=== PATIENT | female | born 1970 | race Caucasian/White ===

== ENCOUNTER → 2022-07-23 10:36 | Outpatient (CLI) | payer MEDICAID, SELFPAY ==
[2022-07-23 14:14] LABS: Alanine Aminotransferase 36 U/L (12-78); Albumin Level 4.7 g/dl (3.5-5.0); Albumin/Globulin Ratio 1.4 (1.1-1.8); Alkaline Phosphatase 87 U/L (38-126); Anion Gap 13.5 mEq/L (5-15); Aspartate Amino Transferase 47 U/L (14-36); Bilirubin,Total 1.5 mg/dl (0.2-1.3); Blood Urea Nitrogen 14 mg/dl (7-17); Calcium 9.5 mg/dl (8.4-10.2); Carbon Dioxide 28 mmol/L (22.0-30.0); Chloride 100 mmol/L (98-107); Chol/HDL Ratio 3.6 (1-3.5); Cholesterol 215 mg/dl (140-200); Estimated Glomerular Filt Rate 88 ml/min (>60); GFR (African American) 107 ML/MIN (>60); Globulin 3.4 g/dL (1.3-3.2); Glucose 95 mg/dl (74-100); HDL Cholesterol 60 mg/dl (40-60); Potassium 4.5 mmoL/L (3.5-5.1); Sodium 137 mmol/L (136-145); Total Protein,Serum 8.1 g/dl (6.3-8.2); Triglycerides 104 mg/dl (30-150); VLDL Cholesterol 21 mg/dL (0-40)
[2022-07-23 14:23] LABS: Basophils # 0.1 K/mm3 (0-0.2); Basophils % 0.5 % (0.1-2.0); Eosinophils # 0.3 K/mm3 (0.0-0.4); Eosinophils % 2.9 % (0.1-12.0); Hematocrit 42.2 % (37.0-47.0); Hemoglobin 13.9 g/dL (12.2-16.2); Lymphocytes # 3.4 K/mm3 (0.7-4.5); Lymphocytes % 34.2 % (10-50); Mean Corpuscular HGB Conc 32.9 g/dL (31.8-35.4); Mean Corpuscular Hemoglobin 30.8 pg (27.0-31.2); Mean Corpuscular Volume 93.8 fl (81-99); Mean Platelet Volume 9.8 fl (7.4-10.4); Monocytes # 0.5 K/mm3 (0.1-1.0); Monocytes % 5.2 % (1.7-9.3); Neutrophils # 5.7 K/mm3 (1.8-7.8); Neutrophils % 57.3 % (37.0-80.0); Platelet Count 292 K/mm3 (142-424); Red Cell Distribution Width 13.4 % (11.5-17.5); White Blood Count 9.9 K/mm3 (4.8-10.8)
[2022-07-23 14:25] LABS: Direct LDL Cholesterol 123.41 mg/dL (100-129)
[2022-07-23 14:31] LABS: Free T4 (Free Thyroxine) 1.46 ng/dl (0.78-2.19)
[2022-07-23 14:33] LABS: 25-OH Vitamin D, Total 26.6 ng/mL (30-100)
[2022-07-23 14:45] LABS: Thyroid Stimulating Hormone 6.66 uIU/mL (0.465-4.68)
== END ==
PROVIDERS: PCP Emergency Medicine; Visit Provider Emergency Medicine
DX: R53.83 Other fatigue (principal); E55.9 Vitamin D deficiency, unspecified
CPT/HCPCS: 80053; 80061; 82306; 84439; 84443; 85025

== ENCOUNTER 2022-08-16 10:30 | Outpatient (RCR) | payer MEDICAID, SELFPAY ==
--- NOTE | 2022-08-05 09:19 | HMH.PTOPEV ---
PT Outpatient Evaluation Rehab PT Outpatient Evaluation Start: 08/05/22 08:11 Freq: Status: Active Protocol: Document 08/05/22 08:50 GINNY (Rec: 08/05/22 09:19 PHOTAYE [id number]) E-signed By Alvarado Velazquez, PT Outpatient Therapy Subjective History Subjective History This is the initial PT eval for Kirsten May 51 yowf who presents with c/o 2-3 mos hx of increased neck pain and 20 yr hx of chronic low back pain with radicular symptoms. She reports she recently changed jobs and her work requires an increased amount of reaching and pulling which she thinks has increased her neck pain. She also has hx of ~3 lumbar spine surgeries (unsure of exact surgery, but appears to be PLIF) due to DDD and unknown disc pathology. She reports she continues to suffer intermittent B LE radicular symptoms to the foot distally. She also has hx of colon resection and LAY. Pt appears somwehat anxious at baseline during examination. Chief Complaint Pain,Stiff,Paresthesia Symptom Type Ache,Burning,Numbness,Tingling Symptoms Relieved By Rest/Positioning Symptoms Aggravated By Standing,Bending/Stooping, Physical Activity,Lifting Prior Functional Limitations Lifting Current Functional Limitations Reaching,Lifting,Housework, Recreation Activity,Bending/ Stooping Symptom Description Constant but Variable Level of pain today (0-10) 6 Pain scale - at its worst (0-10) 10 Cervical Eval Palpation Cervical Muscles R Upper Trapezius Cervical/Thoracic Palpation Findings Tenderness,Spasm Posture Head/C-Spine Posture Sitting Position Extended Head/C-Spine Posture Standing Position Extended Flexibility Deficits Upper Trapezius Muscle Length (R) Mild Tightness Levaetor Scapulae Muscle Length (R) Mild Tightness Passive Joint Mobility Cervical PIVM Dec: R C4/5 L C4/5 R C5/6 L C5/6 R C6/7 L C6/7 WNL: R
== END 2022-08-16 10:35 | disposition home or self-care (01) ==
LOC: PT 10:30
PROVIDERS: PCP Emergency Medicine; Visit Provider Emergency Medicine
DX: M54.2 Cervicalgia (principal); M54.50 Low back pain, unspecified
CPT/HCPCS: 97010; 97014; 97110; 97163; G0283

== ENCOUNTER → 2022-10-15 14:43 | Outpatient (CLI) | payer BC, SELFPAY | PROVIDERS: PCP Emergency Medicine; Visit Provider Emergency Medicine | DX: N39.0 Urinary tract infection, site not specified (principal); B96.20 Unspecified Escherichia coli [E. coli] as the cause of diseases classified elsewhere | CPT/HCPCS: 87086; 87088; 87186 ==

== ENCOUNTER → 2023-01-13 13:48 | Outpatient (CLI) | payer BC, SELFPAY ==
[2023-01-13 14:37] LABS: Basophils # 0.1 K/mm3 (0-0.2); Basophils % 0.8 % (0.1-2.0); Eosinophils # 0.2 K/mm3 (0.0-0.4); Eosinophils % 3.1 % (0.1-12.0); Hematocrit 45.3 % (37.0-47.0); Hemoglobin 14.5 g/dL (12.2-16.2); Lymphocytes # 2.6 K/mm3 (0.7-4.5); Lymphocytes % 38.3 % (10-50); Mean Corpuscular HGB Conc 32.1 g/dL (31.8-35.4); Mean Corpuscular Hemoglobin 30.2 pg (27.0-31.2); Mean Corpuscular Volume 94.2 fl (81-99); Mean Platelet Volume 8.6 fl (7.4-10.4); Monocytes # 0.3 K/mm3 (0.1-1.0); Monocytes % 4.3 % (1.7-9.3); Neutrophils # 3.6 K/mm3 (1.8-7.8); Neutrophils % 53.6 % (37.0-80.0); Platelet Count 270 K/mm3 (142-424); Red Blood Count 4.82 M/mm3 (4.20-5.40); Red Cell Distribution Width 13.9 % (11.5-17.5); White Blood Count 6.8 K/mm3 (4.8-10.8)
--- NOTE | 2023-01-13 14:42 | CT_ITS ---
FINAL REPORT TECHNIQUE: The patient was injected with IV contrast. Axial images were obtained through the chest in a PE protocol. 3-D reconstruction images were also performed. Individualized dose reduction techniques using automated exposure control or adjustment of the MA and/or KV according to patient's size were employed. CLINICAL HISTORY: to rule out PE, sob COMPARISON: None FINDINGS: Mediastinal vasculature is adequately opacified. No pulmonary artery filling defects are identified to suggest PE. There is no aortic dissection. There is no axillary adenopathy. There is no hilar or mediastinal adenopathy. The heart size is normal. There is no pericardial or pleural effusion. Limited images of the upper abdomen are unremarkable. No suspicious infiltrate or nodule is identified. There are mild changes of centrilobular emphysema. IMPRESSION: No pulmonary embolus or dissection. Reviewed, Interpreted and Dictated by Chapito Hong MD Transcribed by Leigha Luis Authenticated and [facility]
[2023-01-13 15:28] LABS: Alanine Aminotransferase 22 U/L (12-78); Albumin Level 4.9 g/dl (3.5-5.0); Alkaline Phosphatase 71 U/L (38-126); Anion Gap 14.4 mEq/L (5-15); Aspartate Amino Transferase 34 U/L (14-36); Bilirubin,Direct 0.2 mg/dl (0.0-0.4); Bilirubin,Indirect 1.2 mg/dL (0.0-0.9); Bilirubin,Total 1.4 mg/dl (0.2-1.3); Bilirubin,Unconjugated 1.2 mg/dL (0.0-1.1); Blood Urea Nitrogen 14 mg/dl (7-17); Calcium 10.1 mg/dl (8.4-10.2); Carbon Dioxide 25 mmol/L (22.0-30.0); Chloride 104 mmol/L (98-107); Chol/HDL Ratio 3.9 (1-3.5); Cholesterol 279 mg/dl (140-200); Estimated Glomerular Filt Rate 75 ml/min (>60); GFR (African American) 91 ML/MIN (>60); Glucose 108 mg/dl (74-100); HDL Cholesterol 72 mg/dl (40-60); Potassium 4.4 mmoL/L (3.5-5.1); Sodium 139 mmol/L (136-145); Triglycerides 120 mg/dl (30-150); VLDL Cholesterol 24 mg/dL (0-40)
[2023-01-13 15:38] LABS: Direct LDL Cholesterol 146.83 mg/dL (100-129)
[2023-01-13 15:44] LABS: Free T4 (Free Thyroxine) 1.07 ng/dl (0.78-2.19)
[2023-01-13 15:58] LABS: Thyroid Stimulating Hormone 3.38 uIU/mL (0.465-4.68)
== END ==
LOC: LAB 13:49
PROVIDERS: PCP Emergency Medicine; Visit Provider Nurse Practitioner
DX: R00.0 Tachycardia, unspecified (principal); E78.5 Hyperlipidemia, unspecified; R06.00 Dyspnea, unspecified; R94.31 Abnormal electrocardiogram [ECG] [EKG]; R11.0 Nausea
CPT/HCPCS: 36415; 71275; 80048; 80061; 80076; 84439; 84443; 85025; Q9967

== ENCOUNTER → 2023-01-17 12:40 | Outpatient (CLI) | payer BC, SELFPAY ==
--- NOTE | 2023-01-17 12:42 | NM_ITS ---
APPROVED REPORT Exam: Nuclear Stress Test Indication: soa..palpitations...chest pain..tobacco user..family hx Patient Location: Outpatient Stress Tech: Keara Cheney CT Tech:ARIAS [place] RT(R)(N) Ht: 5 ft 4 in Wt: 173 lbs Bra Size: 36d HR: 62 bpm BP: 97/46 mmHg BSA: 1.84 m2 Rhythm: NSR TID: 1.31 BMI: 29.6 History: soa..palpitations...chest pain..tobacco user..family hx Procedure: Patient received 0.4 mg of intravenous Lexiscan, resting heart rate 62 bpm, resting blood pressure 97/46 mmHg, with Lexiscan maximum heart rate achieved was 94 bpm which is 85 % of the maximum predicted heart rate and blood pressure was 108/53 mmHg. With Lexiscan, patient denied any complaint of chest pain. Cardiac Stress and Resting SPECT Images: Cardiac Stress and Resting SPECT images were obtained using technetium 99m Myoview 32.5 mCi stress and 10.33 mCi at rest. Resting and stress imaging in both supine and prone positions demonstrate a medium sized, moderate, fixed perfusion defect in the mid to distal anterior and anteroseptal LV wall. There is increased transient ischemic dilatation ratio (TID 1.31), suggestive of possible multivessel disease or balanced ischemia. Gated imaging demonstrates normal global LV systolic function. There is mild hypokinesis of the anterior and anteroseptal LV waite. LVEF is calculated at 55%. Conclusion: Medium sized, moderate, fixed perfusion defect in the mid to distal anterior and anteroseptal LV wall. No evidence of reversible ischemia. Increased transient ischemic dilatation ratio (TID 1.31), suggestive of possible multivessel disease or balanced ischemia. Gated imaging demonstrates normal global LV systolic function. There is mild hypokinesis of the anterior and anteroseptal LV waite. LVEF is calculated at 55%. Electronically signed by : Maria Esther Guerra MD 01/25/2023 01:26:45
--- NOTE | 2023-01-17 15:04 | CA_ITS ---
APPROVED REPORT Exam: Pharmacologic Technologist: Keara Ramirez, Ht: 5 ft 3 in Wt: 173 lbs BSA: 1.82 m2 HR: 64 bpm BP: 97/46 mmHg Rhythm: NSR Medical History Medications: Gabapentin,,,,, Duoneb,,,,, BisOPROLOL,,,,, Diclofenac Sodium,,,,, BuPRenorphinE-Naloxone,,,,, Stress Test Details Test: LEXISCAN Reason for pharmacologic stress test: physical limitation. HR Resting HR: 62 bpm Max Heart Rate (APMHR): 168 bpm Max HR Achieved: 94 bpm Target HR (85% APMHR): 143 bpm % of APMHR: 56 Recovery HR: 72 bpm BP Resting BP: 97.0/46.0 mmHg Max BP: 108.0/53.0 mmHg Recovery BP: 107.0/59.0 mmHg ECG Resting ECG: NSR Stress ECG: No ST changes Arrhythmia: None Clinical Exercise duration: 04:00 min Highest Stage Achieved: Stress ECG Conclusion Symptoms: SOA, head discomfort. No CP. Arrhythmias/Ectopy: None ST-T Changes: No significant ST changes. Conclusion: Unremarkable Lexiscan stress test. Myoview images reported separately. Test Summary REST . . . . . . . Resting REST 07:32 . . 62 . 97/ 46 . . Stage 1 01:00 . . 76 . . . . Stage 2 01:00 . . 93 . 108/ 53 . . Stage 3 01:00 . . 84 . 103/ 51 . . Stage 4 01:00 . . 77 . 103/ 56 . Stop exercise at 04:00 RECOVERY 01:00 . . 74 . . . . RECOVERY 02:00 . . 74 . 104/ 62 . . RECOVERY 03:00 . . 72 . 107/ 59 . . RECOVERY 03:19 . . 71 . 107/ 59 . . Electronically signed by : Maria Esther Guerra MD 01/25/2023 01:23:02
== END ==
LOC: RAD 12:40
PROVIDERS: PCP Emergency Medicine; Visit Provider Nurse Practitioner
DX: R06.00 Dyspnea, unspecified (principal); Z01.810 Encounter for preprocedural cardiovascular examination; R00.0 Tachycardia, unspecified; R11.0 Nausea; R94.31 Abnormal electrocardiogram [ECG] [EKG]; E78.5 Hyperlipidemia, unspecified
CPT/HCPCS: 78452; 93017; A9502; J2785

== ENCOUNTER → 2023-03-14 13:11 | Outpatient (CLI) | payer BC, SELFPAY ==
--- NOTE | 2023-03-14 13:14 | CA_ITS ---
APPROVED REPORT EXAM: Comprehensive 2D, Doppler, and color-flow Echocardiogram Brusher: Kat Helms RDCS Ht: 5 ft 3 in Wt: 174lbs BSA: 1.82 BP: 130/73 mmHg Indications: ABN GXT,SOA 2D Dimensions LVOT 1.94 cm (M/F) 1.5-2.5 M-Mode Dimensions RVDd 2.86 cm (0.9-2.6) LA Diam 4.09 cm (1.9-4.0) LVDd 4.50 cm (3.5-5.7) Ao Diam 2.48 cm (2.0-3.7) LVDs 2.78 cm (3.5-5.7) IVSd 0.86 cm (0.6-1.1) PWd 0.93 cm (0.6-1.1) EF (Teich) 68.60% FS 38.20% EDV (Teich) 92.40 mL TAPSE 1.58 (<1.7) ESV (Teich) 29.00 mL LV Diastology E Decel Time 180.00 (160-240 msec) E/A Ratio 1.1 MED E' 12.90 (< 7 cm/sec) E'/MED E' Ratio 4.95 (>14) LAT E' 17.70 (<10 cm/sec) E/LAT E' Ratio 3.61 (>14) Mitral Valve MV E Max Crescencio. 64.00 (40-130 cm/s) MV A Velocity 60.00 (40-130 cm/s) E/A Ratio 1.06 MV Decel. Time 180.00 (160-240 ms) MV PHT 53.00 ms Tricuspid Valve TR P. Velocity 218.00 cm/s RAP Estimate 10.00 mmHg RVSP 29.00 mmHg Left Ventricle The left ventricle is normal size. The left ventricular systolic function is normal. The left ventricular ejection fraction is within the normal range. There is normal left ventricular wall thickness. There is normal LV segmental wall motion. The left ventricular diastolic function is normal. LVEF is 60-65%. Right Ventricle The right ventricle is normal size. The right ventricular systolic function is normal. Atria Left atrium is mildly dilated. The right atrium size is normal. Aortic Valve The aortic valve is normal in structure. There is no aortic valvular stenosis. No aortic regurgitation is present. Mitral Valve The mitral valve is normal in structure. No evidence of mitral valve stenosis. Mild mitral regurgitation. Tricuspid Valve The tricuspid valve leaflets are thin and pliable. Mild tricuspid regurgitation. RVSP is 15-20 mmHg. Pulmonic Valve The pulmonary valve is normal in structure. Trace pulmonic regurgitation. Great Vessels The aortic root is normal in size. The ascending aorta is not well visualized. IVC is normal in size and collapses >50% with inspiration. Pericardium There is no pericardial effusion. Other Information Study Quality: Adequate Conclusion Normal biventricular systolic function. Mild MR, Mild TR. Electronically signed by : Maria Esther Guerra MD 03/16/2023 22:59:27
== END ==
PROVIDERS: PCP Emergency Medicine; Visit Provider Internal Medicine
DX: Z01.810 Encounter for preprocedural cardiovascular examination (principal); E78.5 Hyperlipidemia, unspecified; R00.0 Tachycardia, unspecified; R06.00 Dyspnea, unspecified; R11.0 Nausea; R94.31 Abnormal electrocardiogram [ECG] [EKG]
CPT/HCPCS: 93306

== ENCOUNTER 2023-03-24 08:39 | Day surgery (SDC) | payer BC, SELFPAY ==
[2023-03-24] VITALS (10 sets, daily range): BP systolic 126–169; BP diastolic 60–79; PULSE 74–88; RESP 16–20; O2SAT 94–98; BMI 30.8
--- NOTE | 2023-03-24 07:11 | IR_ITS ---
APPROVED REPORT Patient Location: Outpatient PROCEDURES Left heart catheterization Left ventriculogram Selective coronary angiogram INDICATION Angina pectoris, Abnormal Myoview Informed consent was obtained prior to the procedure. COMPLICATIONS None Estimated Blood Loss: Less than 10 mls TECHNIQUE One percent lidocaine used to anesthetize the right anterior aspect of the wrist. The right radial artery was accessed via the Seldinger technique. A 6 [place] sheath was placed in the right radial artery. 2.5 mg of Verapamil, 800 mcg of nitroglycerin, 1mg Lidocaine and 5000 U Heparin were given through the arterial sheath. The papa catheter was also used to perform left heart catheterization, left ventriculogram and selective coronary angiogram. At the end of the procedure the sheath was removed good hemostasis was achieved using Traclet band, patient was transferred to the postop holding area in stable condition. ANGIOGRAPHIC RESULTS The left main artery Normal The left anterior descending artery Normal The circumflex artery Normal The right coronary artery Dominant normal The [place] ventriculogram reveals Normal 65% The left ventricular end-diastolic pressure Elevated at 20 to 25 mmHg IMPRESSION Normal coronary arteries Normal ejection fraction Elevated LVEDP consistent with diastolic dysfunction PLAN 1. Recommend sleep study 2. Weight loss exercise 3. Reason of diastolic dysfunction Electronically signed by : Shaquille Eaton MD 03/24/2023 12:45:44
[2023-03-24 09:20] LABS: Basophils # 0.1 K/mm3 (0-0.2); Basophils % 0.8 % (0.1-2.0); Eosinophils # 0.5 K/mm3 (0.0-0.4); Eosinophils % 7.3 % (0.1-12.0); Hematocrit 39.2 % (37.0-47.0); Hemoglobin 13.4 g/dL (12.2-16.2); Lymphocytes # 2.5 K/mm3 (0.7-4.5); Mean Corpuscular HGB Conc 34.1 g/dL (31.8-35.4); Mean Corpuscular Hemoglobin 31.3 pg (27.0-31.2); Mean Corpuscular Volume 91.9 fl (81-99); Monocytes # 0.4 K/mm3 (0.1-1.0); Monocytes % 5.6 % (1.7-9.3); Neutrophils # 3.1 K/mm3 (1.8-7.8); Neutrophils % 48.3 % (37.0-80.0); Platelet Count 206 K/mm3 (142-424); Red Blood Count 4.27 M/mm3 (4.20-5.40); Red Cell Distribution Width 13.4 % (11.5-17.5); White Blood Count 6.5 K/mm3 (4.8-10.8)
[2023-03-24 09:25] LABS: Anion Gap 13.1 mEq/L (5-15); Blood Urea Nitrogen 15 mg/dl (7-17); Calcium 8.7 mg/dl (8.4-10.2); Carbon Dioxide 25 mmol/L (22.0-30.0); Chloride 102 mmol/L (98-107); Creatinine Clearance Estimated 117 mL/min (50-200); Estimated Glomerular Filt Rate 88 ml/min (>60); GFR (African American) 106 ML/MIN (>60); Glucose 87 mg/dl (74-100); Potassium 5.1 mmoL/L (3.5-5.1); Sodium 135 mmol/L (136-145)
== END 2023-03-24 15:26 | disposition home or self-care (01) ==
PROVIDERS: PCP Emergency Medicine; Visit Provider Internal Medicine
DX: I20.89 Other forms of angina pectoris (principal); R94.39 Abnormal result of other cardiovascular function study; E78.5 Hyperlipidemia, unspecified; R00.0 Tachycardia, unspecified; R94.31 Abnormal electrocardiogram [ECG] [EKG]; Z87.891 Personal history of nicotine dependence
CPT/HCPCS: 80048; 85025; 93458; 99152; C1725; C1769; J1644; Q9967

== ENCOUNTER → 2023-04-09 11:37 | Outpatient (CLI) | payer BC, SELFPAY ==
--- NOTE | 2023-04-09 11:40 | XR_ITS ---
FINAL REPORT CLINICAL HISTORY: SOB, NON CARDIAC cp patient vapes FINDINGS: TWO-VIEW CHEST The heart size is normal. The mediastinum is normal. The lungs are clear. There is no pneumothorax. IMPRESSION: No acute cardiopulmonary process. Reviewed, Interpreted and Dictated by Chapito Hong MD Transcribed by Tennille Hurtado Authenticated and [facility]
[2023-04-09 12:37] LABS: Opiate Screen,Urine Negative ng/ml (<300)
[2023-04-09 12:38] LABS: Phencyclidine Screen,Urine Negative ng/ml (<25)
[2023-04-09 12:39] LABS: Benzodiazepines Screen,Urine Negative ng/ml (<200)
[2023-04-09 12:40] LABS: Amphetamine/Metha Screen,Urine Negative ng/ml (<1000)
[2023-04-09 12:41] LABS: Barbiturates Screen,Urine Negative ng/ml (<200)
[2023-04-09 12:49] LABS: Cannabinoid Screen,Urine Negative ng/ml (<50); Methadone Screen,Urine Negative ng/ml (<300)
[2023-04-09 12:50] LABS: Cocaine Screen,Urine Negative ng/ml (<300)
== END ==
PROVIDERS: PCP Family Medicine; Visit Provider Family Medicine
DX: R06.00 Dyspnea, unspecified (principal); Z79.899 Other long term (current) drug therapy
CPT/HCPCS: 71046; 80305

== ENCOUNTER → 2023-04-09 14:49 | Outpatient (CLI) | payer BC, SELFPAY ==
[2023-04-09 12:27] LABS: Influenza A, PCR Not Detected (NotDetected); Influenza B, PCR Not Detected (NotDetected)
[2023-04-09 13:01] LABS: Coronavirus 19, PCR Detected (NotDetected)
== END ==
PROVIDERS: Visit Provider Family Medicine
DX: U07.1 COVID-19 (principal); R69 Illness, unspecified
CPT/HCPCS: 87636

== ENCOUNTER 2023-05-08 11:29 | Outpatient (CLI) | payer BC, SELFPAY | END 2023-05-08 23:59 | LOC: LAB.DROPOF 11:29 | PROVIDERS: PCP Family Medicine; Visit Provider Family Medicine | DX: N39.0 Urinary tract infection, site not specified (principal); B96.29 Other Escherichia coli [E. coli] as the cause of diseases classified elsewhere | CPT/HCPCS: 87086 ==

== ENCOUNTER 2023-06-12 13:17 | Outpatient (CLI) | payer BC, SELFPAY ==
--- NOTE | 2023-06-12 13:21 | XR_ITS ---
FINAL REPORT CLINICAL HISTORY: left cts FINDINGS: Left wrist Three views were obtained. There is no acute fracture or dislocation. There are mild degenerative changes at the radial aspect of the wrist. No soft tissue abnormality is identified. IMPRESSION: Mild degenerative changes. Reviewed, Interpreted and Dictated by Home Luke III, MD Transcribed by Tennille Hurtado Authenticated and [facility]
--- NOTE | 2023-06-12 13:21 | XR_ITS ---
FINAL REPORT CLINICAL HISTORY: right cts FINDINGS: Right wrist Three views were obtained. There is no acute fracture or dislocation. There are mild degenerative changes at the radial aspect of the wrist. No soft tissue abnormality is identified. IMPRESSION: Mild degenerative changes. Reviewed, Interpreted and Dictated by Home Luke III, MD Transcribed by Tennille Hurtado Authenticated and . [facility]
== END 2023-06-12 23:59 ==
LOC: RAD 13:19
PROVIDERS: PCP Family Medicine; Visit Provider Orthopaedic Surgery
DX: G56.03 Carpal tunnel syndrome, bilateral upper limbs (principal)
CPT/HCPCS: 73110

== ENCOUNTER → 2023-09-12 10:30 | Outpatient (CLI) | payer BC, SELFPAY | LOC: SL 10:31 | PROVIDERS: PCP Family Medicine; Visit Provider Nurse Practitioner Family | DX: G47.33 Obstructive sleep apnea (adult) (pediatric) (principal); R40.0 Somnolence; R53.83 Other fatigue | CPT/HCPCS: G0399 ==

== ENCOUNTER 2023-09-15 11:36 | Outpatient (CLI) | payer BC, SELFPAY ==
[2023-09-15 13:20] VITALS: PULSE 67
[2023-09-15] MEDS: ALBUTEROL 0.083% 2.5 MG/3 ML NEB IH (13:20)
== END 2023-09-15 23:59 | disposition home or self-care (01) ==
LOC: RT 11:37
PROVIDERS: PCP Family Medicine; Visit Provider Family Medicine
DX: R06.09 Other forms of dyspnea (principal); Z87.891 Personal history of nicotine dependence
CPT/HCPCS: 94060; 94618; 94640; 94726; 94727; 94729

== ENCOUNTER 2023-09-15 21:54 | Outpatient (CLI) | payer BC, SELFPAY ==
[2023-09-15 21:32] LABS: Basophils # 0.1 K/mm3 (0-0.2); Basophils % 1.3 % (0.1-2.0); Eosinophils # 0.2 K/mm3 (0.0-0.4); Eosinophils % 3.9 % (0.1-12.0); Hematocrit 41.8 % (37.0-47.0); Hemoglobin 13.7 g/dL (12.2-16.2); Lymphocytes # 2.4 K/mm3 (0.7-4.5); Lymphocytes % 38.3 % (10-50); Mean Corpuscular HGB Conc 32.9 g/dL (31.8-35.4); Mean Corpuscular Hemoglobin 31.4 pg (27.0-31.2); Mean Corpuscular Volume 95.5 fl (81-99); Mean Platelet Volume 10.6 fl (7.4-10.4); Monocytes # 0.3 K/mm3 (0.1-1.0); Monocytes % 5.5 % (1.7-9.3); Neutrophils # 3.2 K/mm3 (1.8-7.8); Platelet Count 193 K/mm3 (142-424); Red Blood Count 4.37 M/mm3 (4.20-5.40); Red Cell Distribution Width 14.3 % (11.5-17.5); White Blood Count 6.2 K/mm3 (4.8-10.8)
[2023-09-15 22:19] LABS: Alanine Aminotransferase 20 U/L (12-78); Albumin Level 4.4 g/dl (3.5-5.0); Albumin/Globulin Ratio 1.5 (1.1-1.8); Alkaline Phosphatase 89 U/L (38-126); Anion Gap 14.1 mEq/L (5-15); Aspartate Amino Transferase 31 U/L (14-36); Bilirubin,Total 0.8 mg/dl (0.2-1.3); Blood Urea Nitrogen 14 mg/dl (7-17); Calcium 10.1 mg/dl (8.4-10.2); Carbon Dioxide 25 mmol/L (22.0-30.0); Chloride 104 mmol/L (98-107); Chol/HDL Ratio 3.2 (1-3.5); Cholesterol 243 mg/dl (140-200); Estimated Glomerular Filt Rate 75 ml/min (>60); GFR (African American) 91 ML/MIN (>60); Glucose 110 mg/dl (74-100); HDL Cholesterol 77 mg/dl (40-60); Potassium 4.1 mmoL/L (3.5-5.1); Sodium 139 mmol/L (136-145); Total Protein,Serum 7.4 g/dl (6.3-8.2); Triglycerides 117 mg/dl (30-150); VLDL Cholesterol 23 mg/dL (0-40)
[2023-09-15 22:33] LABS: Direct LDL Cholesterol 127.35 mg/dL (100-129)
[2023-09-15 22:40] LABS: 25-OH Vitamin D, Total 20.4 ng/mL (30-100)
[2023-09-15 22:51] LABS: Thyroid Stimulating Hormone 5.32 uIU/mL (0.465-4.68)
[2023-09-15 23:10] LABS: Vitamin B12 280 pg/mL (239-931)
== END 2023-09-15 23:59 | disposition home or self-care (01) ==
LOC: LAB 21:56
PROVIDERS: PCP Family Medicine; Visit Provider Family Medicine
DX: R53.83 Other fatigue (principal); M54.9 Dorsalgia, unspecified; R73.09 Other abnormal glucose; E55.9 Vitamin D deficiency, unspecified; B96.29 Other Escherichia coli [E. coli] as the cause of diseases classified elsewhere
CPT/HCPCS: 80053; 80061; 82306; 82607; 84443; 85025; 87086; 87088; 87186

== ENCOUNTER 2023-10-20 11:50 | Outpatient (CLI) | payer BC, SELFPAY | END 2023-10-20 23:59 | disposition home or self-care (01) | LOC: LAB.DROPOF 10-21 11:50 | PROVIDERS: PCP Family Medicine; Visit Provider Family Medicine | DX: N39.0 Urinary tract infection, site not specified (principal) | CPT/HCPCS: 87086; 87088; 87186 ==

== ENCOUNTER 2024-02-16 15:18 | Outpatient (CLI) | payer BC, SELFPAY ==
[2024-02-16 16:04] LABS: Basophils # 0.1 K/mm3 (0-0.2); Basophils % 0.8 % (0.1-2.0); Eosinophils # 0.2 K/mm3 (0.0-0.4); Eosinophils % 2.9 % (0.1-12.0); Hemoglobin 12.8 g/dL (12.2-16.2); Lymphocytes # 2.4 K/mm3 (0.7-4.5); Lymphocytes % 36.4 % (10-50); Mean Corpuscular HGB Conc 32.9 g/dL (31.8-35.4); Mean Corpuscular Hemoglobin 30.3 pg (27.0-31.2); Mean Corpuscular Volume 92.2 fl (81-99); Mean Platelet Volume 8.9 fl (7.4-10.4); Monocytes # 0.4 K/mm3 (0.1-1.0); Monocytes % 5.5 % (1.7-9.3); Neutrophils # 3.5 K/mm3 (1.8-7.8); Neutrophils % 54.4 % (37.0-80.0); Platelet Count 208 K/mm3 (142-424); Red Blood Count 4.23 M/mm3 (4.20-5.40); Red Cell Distribution Width 13.7 % (11.5-17.5); White Blood Count 6.5 K/mm3 (4.8-10.8)
[2024-02-16 22:42] LABS: Alanine Aminotransferase 26 U/L (12-78); Albumin Level 4.2 g/dl (3.5-5.0); Albumin/Globulin Ratio 1.7 (1.1-1.8); Alkaline Phosphatase 75 U/L (38-126); Anion Gap 11.4 mEq/L (5-15); Aspartate Amino Transferase 28 U/L (14-36); Bilirubin,Total 0.7 mg/dl (0.2-1.3); Blood Urea Nitrogen 12 mg/dl (7-17); Calcium 9.7 mg/dl (8.4-10.2); Carbon Dioxide 26 mmol/L (22.0-30.0); Chloride 109 mmol/L (98-107); Chol/HDL Ratio 3.4 (1-3.5); Cholesterol 162 mg/dl (140-200); Estimated Glomerular Filt Rate 75 ml/min (>60); GFR (African American) 91 ML/MIN (>60); Globulin 2.5 g/dL (1.3-3.2); Glucose 85 mg/dl (74-100); HDL Cholesterol 48 mg/dl (40-60); Potassium 4.4 mmoL/L (3.5-5.1); Sodium 142 mmol/L (136-145); Total Protein,Serum 6.7 g/dl (6.3-8.2); Triglycerides 178 mg/dl (30-150); VLDL Cholesterol 36 mg/dL (0-40)
[2024-02-16 22:55] LABS: Direct LDL Cholesterol 79.51 mg/dL (100-129)
[2024-02-16 23:01] LABS: Free Thyroxine Index 2.1 ug/dL (5.93-13.13); T4 (Thyroxine) 7.5 ug/dl (5.53-11.0); Triiodothryronine (T3) Uptake 28 % (23.5-40.5)
[2024-02-16 23:15] LABS: Thyroid Stimulating Hormone 4.17 uIU/mL (0.465-4.68)
[2024-02-17 08:59] LABS: Hep B Core Ab, Total Positive (Negative); Hep B Surface Ab, Qual Reactive (.)
[2024-02-17 11:15] LABS: Rapid Plasma Reagin Ab Titer Non Reactive titer (NonRea<1:1)
[2024-02-18 21:17] LABS: HCV Ab Reactive (Non Reactive)
[2024-02-19 00:08] LABS: QuantiFERON-TB Gold Plus Negative (Negative)
[2024-03-23 15:41] LABS: Hepatitis B Surface Antigen Negative
== END 2024-02-16 23:59 | disposition home or self-care (01) ==
LOC: LAB 15:20
PROVIDERS: PCP Family Medicine; Visit Provider Family Medicine
DX: E03.9 Hypothyroidism, unspecified (principal); Z00.00 Encounter for general adult medical examination without abnormal findings
CPT/HCPCS: 36415; 80050; 80053; 80061; 84436; 84443; 84479; 85025; 86480; 86593; 86704; 86706; 86803; 87340

== ENCOUNTER 2024-03-22 11:16 | Outpatient (CLI) | payer BC, SELFPAY ==
[2024-03-22 15:34] LABS: Microscopic,Cath URINE MICROSCOPIC (MICROSCOPIC)
[2024-03-22 15:56] LABS: Appearance,Urine/Cath CLEAR (Clear); Bilirubin,Cath Negative (Negative); Blood, Urine/Cath Negative (Negative); Color,Urine/Cath YELLOW (Yellow); Glucose,Urine/Cath (UA) Negative (Negative); Ketones,Urine/Cath Negative (Negative); Leukocyte Esterase,Cath Negative (Negative); Nitrate,Cath Negative (Negative); Protein,Urine/Cath Negative (Negative); Specific Gravity, Urine/Cath 1.025 (1.005-1.030)
[2024-03-27 21:07] LABS: Atopobium vaginae Low - 0 Score (.); BVAB2 Low - 0 Score (.); Candida albicans NAA Negative (Negative); Candida glabrata Negative (Negative); Chlamydia Trachomatis NAA Negative (Negative); HSV 1 NAA Negative (Negative); HSV 2 NAA Negative (Negative); Megasphaera 1 Low - 0 Score (.); Neisseria gonorrhoeae NAA Negative (Negative); Trich vag NAA Negative (Negative)
== END 2024-03-22 23:59 | disposition home or self-care (01) ==
LOC: LAB.DROPOF 04-02 11:17
PROVIDERS: PCP Family Medicine; Visit Provider Urology
DX: N39.0 Urinary tract infection, site not specified (principal)
CPT/HCPCS: 81001; 87491; 87529; 87591; 87661; 87798; 87801